=== PATIENT | male | born 1940 | race Caucasian/White ===

== ENCOUNTER 2021-09-18 08:40 | Outpatient (CLI) | payer MEDICARE, BC | END 2021-09-18 23:59 | disposition home or self-care (01) | LOC: RT 08:40 | PROVIDERS: ATTEND Internal Medicine | DX: R94.2 Abnormal results of pulmonary function studies (principal); J44.9 Chronic obstructive pulmonary disease, unspecified | CPT/HCPCS: 94010; 94727; 94729 ==